=== PATIENT | female | born 1990 | race American Indian/Alaskan Native ===

== ENCOUNTER 2020-02-11 01:41 | Emergency (ER) | payer SELFPAY ==
[2020-02-11 02:31] VITALS: BP 126/74
--- NOTE | 2020-02-11 03:35 | Emergency Department Report ---
ED Rash HPI - HPI Chief Complaint: Skin Rash Stated Complaint: RASH Time Seen by Provider: 02/11/20 03:20 Duration: 2 weeks Location: Back, Abdomen, Upper Extremities Suspected Cause: Unknown Rash Symptoms: Yes Itching, No Facial Swelling, No Tongue/Oral Swelling, No Lani athing Difficulties, No Choking Sensation, No Wheezing/Dyspnea, No Peeling, No Blistering, No Fever, No Lightheaded, No Malaise, No Myalgias Severity: mild, moderate Other History: 29-year-old female that emerge department complaining of a progressively worsening pruritic rash which is been present on her torso and now back of an unknown etiology she reports no known contacts with a similar rash reports no new changes of activities of daily living. Ports no fever, chills, sweats no chest pain palpitation no nausea vomiting. ED Review of Systems ROS: Stated complaint: RASH Other details as noted in HPI Comment: All other systems reviewed and negative ED Past Medical Hx - Past Medical History Previous Medical History?: No - Surgical History Past Surgical History?: No - Social History Smoking Status: Never Smoker Substance Use Type: None - Medications Home Medications: Home Medications Medication Instructions Recorded Confirmed Last Taken Type Betamethasone Dipro 0.05%(Nf) 1 applicatio TP BID PRN #30 gm 02/11/20 Unknown Rx [Diprosone 0.05% Oint] hydrOXYzine HCL [Atarax] 25 mg PO Q6HR PRN #30 tablet 02/11/20 Unknown Rx predniSONE [Deltasone] 20 mg PO QDAY #5 tab 02/11/20 Unknown Rx Rash Exam - Exam General: Vital signs noted. No distress. Alert and acting appropriately. HEENT: No Periorbital Edema, No Conjuctival Injection, No Chemosis, No Perioral Edema, No Tongue Edema, No Uvular Edema, No Compromised Airway, No Drooling Lungs: Yes Good Air Exchange (Normal Breath Sounds), No Wheezes, No Ronchi, No Stridor, No Cough, No Labored Respirations, No Retractions, No Use of Accessory Muscles, No Other Abnormal Lung Sounds Heart: Yes Regular, No Murmur Front/Back of Body, Lg (Color): 1 - Rash area 2 - Rash area 3 - Rash Skin: Yes Other (Oval like slightly raised scaly patches of multiple sizes scattered across the upper extremities torso back) Other: Positive: Abdomen Normal, Neurologic Normal, Musculoskeletal Normal ED Course Vital Signs 02/11/20 02:25 Temperature 98.4 F Pulse Rate 71 Respiratory 18 Rate Blood Pressure 126/74 O2 Sat by Pulse 97 Oximetry Critical care attestation.: If time is entered above; I have spent that time in minutes in the direct care of this critically ill patient, excluding procedure time. ED Disposition Clinical Impression: Pityriasis rosea Disposition: - TO HOME OR SELFCARE Is pt being admited?: No Does the pt Need Aspirin: No Condition: Stable Instructions: Pityriasis Rosea Prescriptions: hydrOXYzine HCL [Atarax] 25 mg PO Q6HR PRN #30 tablet PRN Reason: Itching predniSONE [Deltasone] 20 mg PO QDAY #5 tab Betamethasone Dipro 0.05%(Nf) [Diprosone 0.05% Oint] 1 applicatio TP BID PRN #30 gm PRN Reason: Itching Referrals: [facility] [Provider Group] - 3-5 Days [facility], [facility] [Other] - 3-5 Days
== END 2020-02-11 03:45 | disposition home or self-care (01) ==
LOC: ED 01:41
DX: L42 Pityriasis rosea (principal); Z79.899 Other long term (current) drug therapy
CPT/HCPCS: 99282